=== PATIENT | female | born 1950 | race Caucasian/White ===

== ENCOUNTER 2016-08-15 12:12 | Inpatient (IN) ==
[2016-08-15] MEDS ORDERED: methylPREDNISolone SOD SUCC 125 MG/2 ML VIAL ONE (12:22)
[2016-08-15] MEDS ORDERED: IPRATROPIUM/ALBUTEROL 3 ML AMPUL.NEB NEB ONE ×2 (12:22→13:38)
[2016-08-15] MEDS ORDERED: methylPREDNISolone SOD SUCC 125 MG/2 ML VIAL IV ONE (12:23)
[2016-08-15 12:54] LABS: Mean Cell Volume 95.7 fL (80.0-100.0); Mean Corpuscular HGB Conc 33.3 g/dL (31.0-36.0); Mean Corpuscular Hemoglobin 31.8 pg (26.0-34.0); Platelet Count 240 K/mcL (140-440); RBC 4.54 M/mcL (4.00-5.20); Red Cell Distribution Width 13.7 % (11.5-14.5)
--- NOTE | 2016-08-15 12:56 | Emergency Department Note ---
SOB HPI - General Chief Complaint: Shortness of Breath/Dyspnea Stated Complaint: short of breath, coughing Time Seen by Provider: 08/15/16 12:21 Source: patient Mode of arrival: ambulatory Limitations: no limitations - History of Present Illness 66-year-old female with a history of COPD who has just seen a assistant fitness manager 2 weeks ago started developing shortness of breath and wheezing over the past 3 days. She has been using her breathing treatments at home as a DuoNeb without any steroids.. History of heavy tobacco usage and half a day for greater than 20 years but did quit 20 years ago. Is afebrile. His complaint is she has been wheezing and coughing over the past 2 days. Is afebrile bilateral wheezing heard is heard in both lung garza denies any chest pain denies upper respiratory type signs or symptoms - Related Data Home Medications Medication Instructions Recorded Confirmed albuterol sulfate HFA 90 2 puff INHALATION Q6H PRN g 07/20/16 07/30/16 mcg/actuation aerosol inhaler furosemide 20 mg tablet 20 mg PO QDAY 07/20/16 07/30/16 guaifenesin ER 600 mg tablet, 600 mg PO Q12H PRN 07/20/16 07/30/16 extended release 12 hr potassium chloride ER 10 mEq 10 meq PO QDAY 07/20/16 07/30/16 tablet,extended release azithromycin 500 mg tablet 500 mg PO QDAY 07/30/16 07/30/16 budesonide 0.5 mg/2 mL suspension 0.5 mg INHALATION BID ml 07/30/16 07/30/16 for nebulization Previous Rx's Medication Instructions Recorded ipratropium-albuterol 0.5 mg-3 3 ml INHALATION QID #3 ml 07/30/16 mg(2.5 mg base)/3 mL nebulization soln Allergies Allergy/AdvReac Type Severity Reaction Status Date / Time No Known Drug Allergies Allergy Verified 07/30/16 08:37 Review of Systems All systems ED: reviewed and negative except as stated. Constitutional: Denies: fever Eyes: Denies: eye pain ENT ED: Denies: ear pain Cardiovascular: Denies: chest pain Respiratory: Reports: cough, wheezes Past Medical History - Past Medical History Medical history: Reports: COPD, other (Migraine systolic heart failure) Family history: Reports: other family history (Alzheimer's mother) - Social History smoking status: Former smoker Alcohol use: Reports: None Drug use: Reports: none Physical Exam - General Limitations: no limitations General appearance: alert - Head Head exam: atraumatic - Eye Eye exam: Present: normal appearance, PERRL - ENT ENT exam: normal exam, normal oropharynx - Neck Neck exam: Present: normal inspection, full ROM. Absent: trachea midline - Chest Chest inspection: Present: normal inspection. Absent: symmetric chest wall rise - Respiratory Respiratory exam: Present: normal lung sounds bilaterally, wheezes - Cardiovascular Cardiovascular exam: Present: regular rate, normal rhythm - Abdominal Exam Abdominal exam: Present: soft, distention. Absent: tenderness, guarding - Extremities Exam Extremities exam: Present: normal inspection, full ROM - Back Exam Back exam: Present: normal inspection, full ROM. Absent: tenderness - Neurological Exam Neurological exam: Present: alert, oriented X3, CN II-XII intact - Psychiatric Psychiatric exam: Present: normal affect, normal mood - Skin Skin exam: Present: warm, dry Course Vital Signs Temperature 98.2 F 08/15/16 12:13 Pulse Rate 92 H 08/15/16 12:13 Respiratory Rate 20 08/15/16 12:13 Blood Pressure 143/120 08/15/16 12:13 Pulse Oximetry (%) 80 L 08/15/16 12:13 Temperature 98.2 F 08/15/16 12:13 Pulse Rate 76 08/15/16 12:40 Respiratory Rate 20 08/15/16 12:40 Blood Pressure 171/107 08/15/16 12:40 Pulse Oximetry (%) 95 08/15/16 12:40 Shortness of Breath/Dyspnea - Lab Data Result diagrams: 08/15/16 12:23 Lab Results 08/15/16 08/15/16 Range/Units 12:23 12:23 POC Hct 44.0 (36.0-48.0) % Band Neutrophils % Not Reportable POC Sodium 139 (133-145) mmol/L POC Potassium 4.3 (3.3-5.1) mmol/L POC Chloride 103 (96-108) mmol/L POC Total CO2 23 (22-30) mmol/L POC BUN 6 L (8-23) mg/dl POC Creatinine 0.5 L (0.6-1.1) mg/dl POC Glucose 111 H (70-105) mg/dL POC WB Ioniz Calcium 1.21 (1.16-1.32) mmol/L Disposition Condition: Good Referrals: Juni Avitia MD [Primary Care Provider] -
[2016-08-15] MEDS ORDERED: guaiFENesin/CODEINE 10 ML UDC PO ONE (12:58)
[2016-08-15 13:33] LABS: Band Neutrophils % 3 % (0-10); Eosinophils % (Manual) 2 % (0-7); Lymphocytes % 15 % (15-49); Monocytes % (Manual) 4 % (1-12); Platelet Estimate NORMAL (NORMAL); RBC Morphology NORMAL (NORMAL); Segmented Neutrophils % 74 % (38-78)
--- NOTE | 2016-08-15 13:52 | XRay Report ---
CLINICAL INFORMATION: Shortness of breath COMPARISON: 04/24/2016 FINDINGS: Heart size, mediastinum and pulmonary vessels are normal. The lung volumes are mildly elevated suggesting chronic bronchitis which is unchanged. Small vague infiltrate or atelectasis developing in the right medial base. Bilateral breast implants resulting in increased density over the mid lungs IMPRESSION: Mild chronic bronchitis or asthma Mild airspace disease right base atelectasis versus developing infiltrate Interpreted and Authenticated by: Bruno Uriostegui 08/15/16
[2016-08-15] MEDS ORDERED: cefTRIAXone 1 GM in DEXTROSE 5% IN WATER 50 ML IV ONE (14:29)
[2016-08-15] MEDS ORDERED: AZITHROMYCIN 500 MG in DEXTROSE 5% IN WATER 250 ML IV ONE (14:30)
[2016-08-15 15:59] LABS: ALT/SGPT 19 U/l (0-40); Albumin 4.1 gm/dL (3.2-5.2); Albumin/Globulin Ratio 1.2 (1.0-2.3); Alkaline Phosphatase 87 U/L (39-117); Blood Urea Nitrogen 7 mg/dl (8-23)
[2016-08-15] MEDS ORDERED: ONDANSETRON 4 MG/2 ML VIAL IV PRN (17:13)
[2016-08-15] MEDS ORDERED: DOCUSATE SODIUM 100 MG CAPSULE PO PRN (17:13)
[2016-08-15] MEDS ORDERED: MAGNESIUM HYDROXIDE 30 ML ORAL.SUSP PO PRN (17:13)
[2016-08-15] MEDS ORDERED: ACETAMINOPHEN 325 MG TABLET PO PRN (17:13)
[2016-08-15] MEDS ORDERED: PNEUMOCOCCAL 23-VAL P-SAC VAC 0.5 ML VIAL IM ONE (17:13)
[2016-08-15] MEDS ORDERED: ALBUTEROL SULFATE 2.5 MG/3 ML NEBULIZER NEB PRN (17:13)
[2016-08-15 17:50] LABS: proBNP 79.7 pg/ml (0-125)
[2016-08-15] MEDS: POTASSIUM CHLORIDE 20 MEQ in 0.45 % SODIUM CHLORIDE 1,000 ML IV SCH (18:12)
--- NOTE | 2016-08-15 18:52 | Internal Med History&Physical ---
Medical - H&P: HPI Patient information: Note initiated : 08/15/16 at 6:46 pm Service Date, if different from initiated Date: [] Patient: Keeley Brandt 66 y/o F admitted on 08/15/16 for short of breath, coughing. Chief Complaint: [] History of present illness: Ms. Brandt is a 66 year old female with a history of COPD. She and her report that she became ill with pneumonia 6 weeks or so ago. Her feels like she never really got back to normal after that. She apparently was feeling a little bit better, but then about 4 days ago started having increasing coughing spells and spasms, which would then trigger increased shortness of breath. She was using duo nebs at home, which helped for a short time, but then the cough would return. She did notice some chills yesterday, but did not notice a fever. She has a mild headache, and says her vision seems a little off the last couple of days. Her throat is been a bit sore, and she has had a runny nose, but she thought these were just allergy symptoms. She is having some chest soreness related to the coughing. She is noting fairly significant dyspnea with exertion and also some dyspnea with trying to lie down. She is most comfortable sitting straight up. Otherwise, she denies dizziness, ear pain or discharge, significant sinus tenderness, swollen glands, palpitations, abdominal pain, nausea or vomiting, diarrhea or constipation, dysuria. ER evaluation showed significant hypoxemia, particularly on room air. She did not improve enough with treatments in the ER to go home, so is now admitted for more intensive management. Medical History Body mass index (BMI) of 37.0 to 37.9 in adult (Chronic) Bronchitis (Chronic) Chronic diastolic (congestive) heart failure (Chronic) Chronic obstructive pulmonary disease, unspecified (Chronic) Migraine headache (Chronic) Personal history of nicotine dependence --resolved. Pneumonia Tuberculosis -treated in the 1960s, resolved. Surgical History History of appendectomy Medication List albuterol sulfate HFA 90 mcg/actuation (Ventolin HFA) 2 puffs Inhalation Q6H PRN budesonide 0.5 mg Inhalation BID furosemide (Lasix) 20 mg PO QDAY needed guaifenesin ER (Mucinex) 600 mg PO Q12H PRN potassium chloride ER 10 mEq PO QDAY on day she takes Lasix. Duo nebs 4 times daily Allergies/Adverse Reactions No Known Drug Allergies Allergy Family History Her father's health was unknown. Her mother with Alzheimer's in her 60s. Her brother of a massive heart attack in his early 60s. She is not aware of family history of lung disease, cancers, stroke. Social History She is to her second . She does live with her and her cat. She refuses to get rid of her cat, even though her doctor has recommended it. She smoked for many years, starting at the age of 14, 1-1-1/2 packs per day, but quit in 1995. She drinks 1-2 glasses of wine most evenings. She does not use drugs. Medical - H&P: Meds Home Medications Medication Instructions Recorded Confirmed Type albuterol sulfate HFA 90 2 puff INHALATION Q6H PRN g 07/20/16 07/30/16 History mcg/actuation aerosol inhaler furosemide 20 mg tablet 20 mg PO QDAY 07/20/16 07/30/16 History guaifenesin ER 600 mg tablet, 600 mg PO Q12H PRN 07/20/16 07/30/16 History extended release 12 hr potassium chloride ER 10 mEq 10 meq PO QDAY 07/20/16 07/30/16 History tablet,extended release azithromycin 500 mg tablet 500 mg PO QDAY 07/30/16 07/30/16 History budesonide 0.5 mg/2 mL suspension 0.5 mg INHALATION BID ml 07/30/16 07/30/16 History for nebulization ipratropium-albuterol 0.5 mg-3 3 ml INHALATION QID #3 ml 07/30/16 07/30/16 Rx mg(2.5 mg base)/3 mL nebulization soln Allergies Allergy/AdvReac Type Severity Reaction Status Date / Time No Known Drug Allergies Allergy Verified 07/30/16 08:37 Medical - H&P: Exam - Constitutional Vitals: Temp Pulse Resp BP Pulse Ox 98.1 F 95 H 24 H 118/78 93 08/15/16 17:40 08/15/16 17:40 08/15/16 17:40 08/15/16 17:40 08/15/16 17:40 On exam, she is a well-developed, overweight, white female, who tends to cough and wheeze whenever she tries to talk. She is not otherwise in acute distress at this time. Head: Normocephalic, atraumatic. Ears: TMs and canals are clear. Eyes: PERRLA, EOMI, anicteric. Pharynx: Is clear. She has full upper and lower plates. Mucosa is normal. Neck: Is supple, without obvious JVD, lymphadenopathy, thyromegaly, bruits. Cardiac exam: Shows regular rate and rhythm, with normal S1 and S2, without obvious murmurs, rubs, gallops. Lungs: She has diffuse inspiratory and expiratory wheezing, throughout all lung garza. Scattered rhonchi are noted. Crackles are not appreciated. She does not appear to have accessory muscle use. Abdomen: Is obese, but soft and nontender. Extremities: Show no significant edema, cyanosis or clubbing. Neurologic exam: Is grossly nonfocal. Mood and affect appear normal. Medical - H&P: Reslt - Labs CBC & Chem 7: 08/15/16 12:23 08/15/16 14:54 Labs: August 15: Liver function tests within normal limits. Troponin is normal at less than 0.01. BNP is normal at 79 D-dimer is normal at 0.31 Lactic acid is normal at 2.0 ABG on room air: PH 7.42, PCO2 37, PO2 56, bicarb 24, O2 saturation 89% Chest x-ray: Shows mildly elevated lung volumes suggesting chronic bronchitis. Small vague infiltrate versus atelectasis at the right base. Bilateral breast implants. EKG: Shows normal sinus rhythm at a rate of about 95. Normal axis. Low voltage. No obvious acute ischemic changes. August 14, 2016: Sputum Gram stain: Few polys. Few gram-positive cocci and gram- positive bacilli. Preliminary culture shows no pathogens. Medical - H&P: A/P (1) Acute and chronic respiratory failure ([id number]) Current visit: Yes Status: Acute (2) History of tobacco abuse Current visit: No Status: Acute (3) Hypoxia Current visit: Yes Status: Acute (4) Pneumonia Current visit: Yes Status: Chronic (5) Chronic diastolic (congestive) heart failure Current visit: No Status: Chronic - Narrative A/P Narrative: #1. Pulmonary. This patient presents with acute on chronic respiratory failure, with hypoxia. She appears to be having a COPD/emphysema exacerbation, complicated by pneumonia. Screens for cardiac ischemia, CHF, PE, are all negative. Admit for workup and treatment. Oxygen to maintain O2 saturations. Bronchodilators and IV fluids as needed, and inhaled budesonide. Cover for community-acquired pneumonia with Rocephin and Zithromax. Blood and sputum cultures are pending. 2. Obesity. 3. Cardiac. - Reported history of diastolic heart failure. The patient seems unaware of this diagnosis. The patient seems unaware of this diagnosis. Continue Lasix 20 mg daily, as needed. -Patient reports she had a fairly recent cardiac workup at [facility] , including stress test and echocardiogram. 4. History of migraines. 5. History of tobacco abuse. Abstinent 20 years. 6. 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 7. CODE STATUS: Patient requests DNR 8. DVT prophylaxis: Subcu Lovenox. This visit took approximately 50 minutes, to review the patient's records and test results, review her case with the ER MD, interview and examine her, and write orders. Medical - H&P: Qual - VTE Deep Vein Thrombosis/Pulmonary Embolism Present on Admission: No
[2016-08-15] MEDS: IPRATROPIUM/ALBUTEROL 3 ML AMPUL.NEB NEB SCH (19:42)
[2016-08-15] MEDS: BUDESONIDE 0.5 MG/2 ML AMPUL.NEB NEB SCH (20:59)
[2016-08-15] MEDS: 0.9 % SODIUM CHLORIDE 10 ML SYRINGE IV SCH (21:42)
[2016-08-16] MEDS: IPRATROPIUM/ALBUTEROL 3 ML AMPUL.NEB NEB SCH ×4 (00:52→20:20)
[2016-08-16] MEDS: 0.9 % SODIUM CHLORIDE 10 ML SYRINGE IV SCH ×3 (04:26→22:06)
[2016-08-16 06:21] LABS: Basophils # (Auto) 0 K/mcL (0.0-0.3); Basophils % (Auto) 0.1 % (0.0-2.0); Eosinophils # (Auto) 0 K/mcL (0.0-0.7); Eosinophils % (Auto) 0.2 % (0.0-7.0); Granulocytes % (Auto) 87.3 % (38.0-78.0); Lymphocytes # (Auto) 0.8 K/mcL (1.5-4.8); Lymphocytes % (Auto) 9.7 % (15.5-49.0); Mean Cell Volume 96.7 fL (80.0-100.0); Mean Corpuscular HGB Conc 33.1 g/dL (31.0-36.0); Monocytes # (Auto) 0.2 K/mcL (0.1-0.9); Monocytes % (Auto) 2.7 % (1.0-12.0); Platelet Count 245 K/mcL (140-440); Red Cell Distribution Width 13.4 % (11.5-14.5)
[2016-08-16 06:52] LABS: ALT/SGPT 18 U/l (0-40); Albumin/Globulin Ratio 1.4 (1.0-2.3); Alkaline Phosphatase 77 U/L (39-117); Bilirubin,Direct < 0.2 mg/dL (0.0-0.3); Blood Urea Nitrogen 10 mg/dl (8-23); Gamma Glutamyl Transpeptidase 29 U/L (5-36); Magnesium 2.1 mg/dL (1.6-2.5); Uric Acid 4.9 mg/dL (2.5-8.0)
[2016-08-16] MEDS: BUDESONIDE 0.5 MG/2 ML AMPUL.NEB NEB SCH ×2 (07:09→20:19)
[2016-08-16] MEDS ORDERED: PNEUMOCOCCAL 23-VAL P-SAC VAC 0.5 ML VIAL IM ONE (09:00)
[2016-08-16] MEDS: ENOXAPARIN 40 MG/0.4 ML SYRINGE SQ SCH (10:06)
[2016-08-16] MEDS: AZITHROMYCIN 500 MG in DEXTROSE 5% IN WATER 250 ML IV SCH (10:06)
--- NOTE | 2016-08-16 10:25 | Internal Med Progress Note ---
Medical - PN: Subj Patient information: Note initiated : 08/16/16 at 10:25 am Service Date, if different from initiated Date: [] Patient: Keeley Brantd 66 y/o F admitted on 08/15/16 for short of breath, coughing. Chief Complaint: [] Interval history: August 15, 2016: History of present illness: Ms. Brandt is a 66 year old female with a history of COPD. She and her report that she became ill with pneumonia 6 weeks or so ago. Her feels like she never really got back to normal after that. She apparently was feeling a little bit better, but then about 4 days ago started having increasing coughing spells and spasms, which would then trigger increased shortness of breath. She was using duo nebs at home, which helped for a short time, but then the cough would return. She did notice some chills yesterday, but did not notice a fever. She has a mild headache, and says her vision seems a little off the last couple of days. Her throat is been a bit sore, and she has had a runny nose, but she thought these were just allergy symptoms. She is having some chest soreness related to the coughing. She is noting fairly significant dyspnea with exertion and also some dyspnea with trying to lie down. She is most comfortable sitting straight up. Otherwise, she denies dizziness, ear pain or discharge, significant sinus tenderness, swollen glands, palpitations, abdominal pain, nausea or vomiting, diarrhea or constipation, dysuria. ER evaluation showed significant hypoxemia, particularly on room air. She did not improve enough with treatments in the ER to go home, so is now admitted for more intensive management. August 16: Today, the patient says she is feeling quite a bit better. However she has a headache kind of that she describes as around her sinuses and temporal areas. She has no shortness of breath at rest, and fairly minimal shortness of breath with exertion. However, PT did walk her and noted that her sats dropped down into the mid 80s after activity on room air. Otherwise, she denies fever or chills, sore throat. She does have a bit of a cough still. She denies chest pain or palpitations. She continues to have some wheezing, that is improved. She denies abdominal pain nausea or vomiting diarrhea or constipation, or dysuria. - Constitutional Vitals: Vital Signs Temp Pulse Resp BP Pulse Ox 97.9 F 70 16 145/86 96 08/16/16 07:27 08/16/16 07:36 08/16/16 07:34 08/16/16 07:27 08/16/16 07:36 Period Temp Pulse Resp BP Sys/Barber Pulse Ox Last 24 Hr 97.6 F-98.2 F 67-95 16-24 118-171/72-93 90-96 Intake and Output 08/15/16 08/16/16 08/16/16 21:59 05:59 13:59 Intake Total 1160 / 1460 300 / 300 1200 / 1200 Output Total 1100 / 1100 1550 / 1550 1300 / 1300 Balance 60 / 360 -1250 / -1250 -100 / -100 Weight 227 lb 8 oz Intake & Output: Intake & Output 08/15/16 08/16/16 08/16/16 21:59 05:59 13:59 Intake Total 1160 / 1460 300 / 300 1200 / 1200 Output Total 1100 / 1100 1550 / 1550 1300 / 1300 Balance 60 / 360 -1250 / -1250 -100 / -100 Weight 227 lb 8 oz Intake: Oral 1160 / 1160 300 / 300 1200 / 1200 Output: Void Amount 1100 / 1100 1550 / 1550 1300 / 1300 Other: Meal Dinner Breakfast Percent of Meal Consumed 100% 100% Feeding Ability Independent # Voids 1 On exam, she is sitting up in a chair and smiling. Neck shows no obvious lymphadenopathy or JVD. Cardiac exam shows regular rate and rhythm. Lungs: Soft wheezes heard throughout all lung garza, but much improved over yesterday. There is no accessory muscle use. Abdomen: Is soft and nontender. Extremities: Show no edema. Medical - PN: Obj Da - Labs CBC & Chem 7: 08/16/16 04:10 08/16/16 04:10 Labs: Abnormal Lab Results 08/16/16 08/16/16 04:10 04:10 Gran % 87.3 H Lymph % (Auto) 9.7 L Lymph # (Auto) 0.8 L Glucose 126 H August 16: Liver function tests are within normal limits. Blood cultures are negative so far. Follow-up chest x-ray shows minor atelectasis at the right base, without abdias infiltrate. Chronic bronchitis changes are noted. August 15: Liver function tests within normal limits. Troponin is normal at less than 0.01. BNP is normal at 79 D-dimer is normal at 0.31 Lactic acid is normal at 2.0 ABG on room air: PH 7.42, PCO2 37, PO2 56, bicarb 24, O2 saturation 89% Chest x-ray: Shows mildly elevated lung volumes suggesting chronic bronchitis. Small vague infiltrate versus atelectasis at the right base. Bilateral breast implants. EKG: Shows normal sinus rhythm at a rate of about 95. Normal axis. Low voltage. No obvious acute ischemic changes. August 14, 2016: Sputum Gram stain: Few polys. Few gram-positive cocci and gram- positive bacilli. Preliminary culture shows no pathogens. Meds: Medications Acetaminophen (Tylenol) 650 mg PO Q6HP PRN PRN Reason: PAIN/FEVER > 101 Last Admin: 08/15/16 21:02 Dose: 650 mg Albuterol Sulfate (Ventolin) 2.5 mg NEB Q2HP PRN PRN Reason: Shortness Of Breath Albuterol/Ipratropium (Duoneb) 3 ml NEB Q6HRT [facility] Last Admin: 08/16/16 07:09 Dose: 3 ml Budesonide (Pulmicort) 0.5 mg NEB Q12 [facility] Last Admin: 08/16/16 07:09 Dose: 0.5 mg Docusate Sodium (Colace) 100 mg PO BID PRN PRN Reason: Constipation Enoxaparin Sodium (Lovenox) 40 mg SQ DAILY [facility] Last Admin: 08/16/16 10:06 Dose: 40 mg Azithromycin 500 mg/ Dextrose 250 mls @ 250 mls/hr IV Q24H [facility] Stop: 08/17/16 09:59 Last Admin: 08/16/16 10:06 Dose: 250 mls/hr Ceftriaxone Sodium 1 gm/ (Dextrose) 50 mls @ 100 mls/hr IV DAILY [facility] Potassium Chloride 20 meq/ (Sodium Chloride) 1,010 mls @ 75 mls/hr IV .[id number] [facility] Last Admin: 08/15/16 18:12 Dose: 75 mls/hr Magnesium Hydroxide (Milk Of Magnesia) 30 ml PO DAILYP PRN PRN Reason: Constipation Ondansetron HCl (Zofran) 4 mg IV Q6HP PRN PRN Reason: Nausea And Vomiting Sodium Chloride (Saline Flush) 10 ml IV Q8 [facility] Last Admin: 08/16/16 04:26 Dose: Not Given Medical - PN: A/P - Time Spent With Patient Total time spent is greater than 50% in coordination of care (as documented) at patient's floor/unit and/or counseling patient: 25 - 35 minutes (1) Acute and chronic respiratory failure ([id number]) Status: Acute Current Visit: Yes (2) History of tobacco abuse Status: Acute Current Visit: No (3) Hypoxia Status: Acute Current Visit: Yes (4) Pneumonia Status: Chronic Current Visit: Yes (5) Chronic diastolic (congestive) heart failure Status: Chronic Current Visit: No - Narrative A/P Narrative: #1. Pulmonary. This patient presents with acute on chronic respiratory failure, with hypoxia. She appears to be having a COPD/emphysema exacerbation, complicated by pneumonia. Screens for cardiac ischemia, CHF, PE, are all negative. The patient continues to have hypoxia with exertion. Continue oxygen to maintain O2 saturations. Bronchodilators and IV fluids as needed, and inhaled budesonide. -IV steroids were added today. Cover for community-acquired pneumonia with Rocephin and Zithromax. Blood and sputum cultures are pending. 2. Obesity. 3. Cardiac. - Reported history of diastolic heart failure. The patient seems unaware of this diagnosis. The patient seems unaware of this diagnosis. Continue Lasix 20 mg daily, as needed. -Patient reports she had a fairly recent cardiac workup at [facility] , including stress test and echocardiogram. 4. History of migraines. 5. History of tobacco abuse. Abstinent 20 years. 6. 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 7. CODE STATUS: Patient requests DNR 8. DVT prophylaxis: Subcu Lovenox. #9. Headache today. She may well have sinusitis. - IV steroids were added today, to cover a possible sinus infection, in addition to her COPD exacerbation. -Schneider was also added to help control headache. Medical - PN: Qual - VTE Deep Vein Thrombosis/Pulmonary Embolism Present on Admission: No
[2016-08-16] MEDS ORDERED: HYDROcodone/APAP 5/325MG TABLET PO PRN (11:39)
[2016-08-16] MEDS: methylPREDNISolone SOD SUCC 125 MG/2 ML VIAL IV SCH ×2 (11:50→22:06)
--- NOTE | 2016-08-16 12:03 | XRay Report ---
CLINICAL INFORMATION: Follow up pneumonia COMPARISON: 08/07/2016 FINDINGS: There is minor atelectasis in the right base which is unchanged - no abdias infiltrate. Heart size, mediastinum and pulmonary vessels are normal. Chronic bronchitis noted. IMPRESSION: No infiltrate - minor right basilar atelectasis Interpreted and Authenticated by: Bruno Uriostegui 08/16/16
[2016-08-16] MEDS: cefTRIAXone 1 GM in DEXTROSE 5% IN WATER 50 ML IV SCH (12:27)
[2016-08-16] MEDS: POTASSIUM CHLORIDE 20 MEQ in 0.45 % SODIUM CHLORIDE 1,000 ML IV SCH (13:35)
[2016-08-16] MEDS ORDERED: FUROSEMIDE 20 MG TABLET PO PRN (21:07)
[2016-08-16] MEDS ORDERED: guaiFENesin 600 MG TAB.SR.12H PO PRN (21:07)
[2016-08-17] MEDS: POTASSIUM CHLORIDE 20 MEQ in 0.45 % SODIUM CHLORIDE 1,000 ML IV SCH ×2 (02:50→10:18)
[2016-08-17] MEDS: IPRATROPIUM/ALBUTEROL 3 ML AMPUL.NEB NEB SCH ×3 (03:25→13:13)
[2016-08-17] MEDS: 0.9 % SODIUM CHLORIDE 10 ML SYRINGE IV SCH (05:20)
[2016-08-17] MEDS: BUDESONIDE 0.5 MG/2 ML AMPUL.NEB NEB SCH (07:21)
[2016-08-17 07:55] LABS: Basophils # (Auto) 0 K/mcL (0.0-0.3); Basophils % (Auto) 0 % (0.0-2.0); Eosinophils # (Auto) 0 K/mcL (0.0-0.7); Eosinophils % (Auto) 0 % (0.0-7.0); Granulocytes % (Auto) 92.4 % (38.0-78.0); Lymphocytes # (Auto) 0.8 K/mcL (1.5-4.8); Lymphocytes % (Auto) 7.2 % (15.5-49.0); Mean Cell Volume 96.6 fL (80.0-100.0); Mean Corpuscular HGB Conc 33.4 g/dL (31.0-36.0); Mean Corpuscular Hemoglobin 32.2 pg (26.0-34.0); Monocytes # (Auto) 0 K/mcL (0.1-0.9); Monocytes % (Auto) 0.4 % (1.0-12.0); Platelet Count 241 K/mcL (140-440); RBC 4.23 M/mcL (4.00-5.20); Red Cell Distribution Width 13.5 % (11.5-14.5)
[2016-08-17 08:28] LABS: ALT/SGPT 21 U/l (0-40); Albumin 3.9 gm/dL (3.2-5.2); Albumin/Globulin Ratio 1.4 (1.0-2.3); Alkaline Phosphatase 72 U/L (39-117); Bilirubin,Direct < 0.2 mg/dL (0.0-0.3); Blood Urea Nitrogen 15 mg/dl (8-23); Gamma Glutamyl Transpeptidase 36 U/L (5-36); Magnesium 2.1 mg/dL (1.6-2.5); Uric Acid 4.7 mg/dL (2.5-8.0)
[2016-08-17] MEDS: methylPREDNISolone SOD SUCC 125 MG/2 ML VIAL IV SCH (08:32)
[2016-08-17] MEDS ORDERED: cefTRIAXone 1 GM VIAL ONE (08:36)
[2016-08-17] MEDS: ENOXAPARIN 40 MG/0.4 ML SYRINGE SQ SCH (08:52)
[2016-08-17] MEDS: cefTRIAXone 1 GM in DEXTROSE 5% IN WATER 50 ML IV SCH (08:53)
[2016-08-17] MEDS: AZITHROMYCIN 500 MG in DEXTROSE 5% IN WATER 250 ML IV SCH (09:47)
--- NOTE | 2016-08-17 11:21 | Discharge Summary ---
Medical - DS: Prov Patient information: Note initiated : 08/17/16 at 11:21 am Service Date, if different from initiated Date: [] Patient: Keeley Brandt 66 y/o F admitted on 08/15/16 for SOB, Coughing/Resp Failure w/ Hypoxia, Pneumonia. Chief Complaint: [] Date of admission: 08/15/16 17:00 Discharge date: 08/17/16 Primary care physician: Juni Avitia Admitting clinician: Cheryl Mir Attending physician on discharge: Cheryl Mir Medical - DS: Meds - Discharge Medications Prescriptions: Amoxicillin/Potassium Clav [Augmentin] 875 mg PO Q12H #10 tablet Budesonide [Pulmicort] 0.5 mg NEB Q12 #60 ampul.neb predniSONE [Prednisone] 10 mg PO UD #40 tablet Active and Home Medications: Discharge medications: Augmentin 875 mg p.o. twice daily for 5 more days. Prednisone taper, start with 80 mg daily, taper by 10 mg per day. Tylenol as needed Duo nebs per nebulizer 4 times daily Albuterol inhaler as needed Budesonide nebulizers 0.5 mg twice daily Guaifenesin 600 mg p.o. every 12 hours as needed sinus congestion Potassium 10 mEq once a day, when you take Lasix Lasix 20 mg daily as needed excess edema Previous home Medications albuterol sulfate HFA 90 mcg/actuation aerosol inhaler 2 puff INHALATION Q6H PRN g 07/20/16 [History Confirmed 08/15/16 Last Taken 08/15/16 08:00] furosemide 20 mg tablet 20 mg PO QDAY 07/20/16 [History Confirmed 08/15/16 Last Taken 08/13/16 08:00] guaifenesin ER 600 mg tablet, extended release 12 hr 600 mg PO Q12H PRN [History Confirmed 08/15/16 Last Taken 08/15/16 05:00] potassium chloride ER 10 mEq tablet,extended release 10 meq PO QDAY 07/20/16 [ History Confirmed 08/16/16 Last Taken 08/13/16 08:00] budesonide 0.5 mg/2 mL suspension for nebulization 0.5 mg INHALATION BID ml 02/03 [History Confirmed 08/15/16 Last Taken 08/15/16] ipratropium-albuterol 0.5 mg-3 mg(2.5 mg base)/3 mL nebulization soln 3 ml INHALATION QID #3 ml 07/30/16 [Rx Confirmed 08/15/16 Last Taken 08/15/16] Medical - DS: [facility] Hospital course: Mr. Brandt is a 66 year old F August 15, 2016: History of present illness: Ms. Brantd is a 66 year old female with a history of COPD. She and her report that she became ill with pneumonia 6 weeks or so ago. Her feels like she never really got back to normal after that. She apparently was feeling a little bit better, but then about 4 days ago started having increasing coughing spells and spasms, which would then trigger increased shortness of breath. She was using duo nebs at home, which helped for a short time, but then the cough would return. She did notice some chills yesterday, but did not notice a fever. She has a mild headache, and says her vision seems a little off the last couple of days. Her throat is been a bit sore, and she has had a runny nose, but she thought these were just allergy symptoms. She is having some chest soreness related to the coughing. She is noting fairly significant dyspnea with exertion and also some dyspnea with trying to lie down. She is most comfortable sitting straight up. Otherwise, she denies dizziness, ear pain or discharge, significant sinus tenderness, swollen glands, palpitations, abdominal pain, nausea or vomiting, diarrhea or constipation, dysuria. ER evaluation showed significant hypoxemia, particularly on room air. She did not improve enough with treatments in the ER to go home, so is now admitted for more intensive management. August 16: Today, the patient says she is feeling quite a bit better. However she has a headache kind of that she describes as around her sinuses and temporal areas. She has no shortness of breath at rest, and fairly minimal shortness of breath with exertion. However, PT did walk her and noted that her sats dropped down into the mid 80s after activity on room air. Otherwise, she denies fever or chills, sore throat. She does have a bit of a cough still. She denies chest pain or palpitations. She continues to have some wheezing, that is improved. She denies abdominal pain nausea or vomiting diarrhea or constipation, or dysuria. August 17: Hospital course: The patient has done well overnight. She was weaned off her oxygen this morning. She only drops her O2 saturation down to about 90% today, with ambulation. She is coughing less, and feels that her breathing is easier. She is quite anxious to return home. She otherwise denies fever or chills. She continues to have a fairly flushed face. She says today that she thinks her headache was not her sinuses, but was caffeine withdrawal, as we had her on a cardiac diet, and she is used to caffeine every day. She denies chest pain or palpitations or significant shortness of breath, GI or symptoms. Physical exam, she is a well-developed well-nourished female in no acute distress. Neck is supple without lymphadenopathy or JVD. Cardiac exam shows regular rate and rhythm. Lungs show somewhat decreased breath sounds, with minimal scattered wheezes. There is no accessory muscle use. Abdomen: Soft. Extremities show no edema. Neurologic exam is grossly nonfocal . Assessment and plan: #1. Pulmonary. This patient presents with acute on chronic respiratory failure, with hypoxia. She appears to be having a COPD/emphysema exacerbation, complicated by pneumonia. Screens for cardiac ischemia, CHF, PE, are all negative. -Hypoxemia did improve today. She is feeling much better. She will be discharged home on oral prednisone, duo nebs, budesonide nebs twice daily, Augmentin to cover both her lungs and her sinuses, guaifenesin. Blood and sputum cultures are pending. 2. Obesity. 3. Cardiac. - Reported history of diastolic heart failure. The patient seems unaware of this diagnosis. Continue Lasix 20 mg daily, as needed. -Patient reports she had a fairly recent cardiac workup at [facility] , including stress test and echocardiogram. 4. History of migraines. 5. History of tobacco abuse. Abstinent 20 years. 6. 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 7. CODE STATUS: Patient requests DNR 8. DVT prophylaxis: Subcu Lovenox. #9. Headache yesterday. We thought perhaps she had sinusitis, but today we are wondering if she was just having a caffeine withdrawal headache. -Covered with oral Augmentin, prednisone. Add Flonase if needed. This visit today took approximately 35 minutes, to interview and examine the patient, review her test results, check follow-up O2 sats, reviewed plan of care with staff, and write orders and prescriptions.. Discharge diagnosis: COPD exacerbation with hypoxia. Possible acute sinusitis, pneumonia - Time Spent with Patient Total time spent providing and/or coordinating discharge services: Greater than 30 minutes Medical - DS: Exam - Constitutional Vitals: Vital Signs Temp Pulse Pulse Resp BP Pulse Ox 08/17/16 10:44 91 08/17/16 07:45 96.5 F L 98 H 16 115/78 96 08/17/16 07:40 16 96 08/17/16 07:23 62 18 94 08/17/16 03:37 98.7 F 62 18 117/80 93 08/16/16 20:24 70 22 95 08/16/16 20:23 96 08/16/16 20:21 70 22 08/16/16 20:00 96.6 F L 70 18 105/71 95 08/16/16 16:16 97.3 F 22 101/60 08/16/16 13:19 70 16 08/16/16 11:41 97.6 F 20 113/75 96 Intake and Output 08/16/16 08/17/16 08/17/16 21:59 05:59 13:59 Intake Total 1600 / 1600 300 / 300 1620 / 1620 Output Total 1225 / 1225 1400 / 1400 1400 / 1400 Balance 375 / 375 -1100 / -1100 220 / 220 Intake: Oral 1600 / 1600 300 / 300 1620 / 1620 Output: Urine Catheter Amount 1000 / 1000 Void Amount 1225 / 1225 1400 / 1400 400 / 400 Other: Meal Breakfast Percent of Meal Consumed 75% # Voids 250 # Bowel Movements 1 Weight 226 lb Medical - DS: Data Labs on day of discharge: Labs from last 24 hours 08/17/16 08/17/16 05:45 05:45 WBC 10.9 RBC 4.23 Hgb 13.6 Hct 40.8 MCV 96.6 MCH 32.2 MCHC 33.4 RDW 13.5 Plt Count 241 MPV 9.0 Gran % 92.4 H Lymph % (Auto) 7.2 L [place] % (Auto) 0.4 L Eos % (Auto) 0 Baso % (Auto) 0 Gran # 10.0 H Lymph # (Auto) 0.8 L [place] # (Auto) 0 L Eos # (Auto) 0 Baso # (Auto) 0 Sodium 140 Potassium 4.7 Chloride 103 Carbon Dioxide 21 L Anion Gap 16.0 BUN 15 Creatinine 0.6 GFR Calculation 94 Glucose 132 H Uric Acid 4.7 Calcium 9.5 Phosphorus 3.2 Magnesium 2.1 Total Bilirubin 0.2 Direct Bilirubin < 0.2 GGT 36 AST 18 ALT 21 Alkaline Phosphatase 72 Lactate Dehydrogenase 202 Total Protein 6.7 Albumin 3.9 Globulin 2.8 Albumin/Globulin Ratio 1.4 Triglycerides 74 August 16: Liver function tests are within normal limits. Blood cultures are negative so far. Follow-up chest x-ray shows minor atelectasis at the right base, without abdias infiltrate. Chronic bronchitis changes are noted. August 15: Liver function tests within normal limits. Troponin is normal at less than 0.01. BNP is normal at 79 D-dimer is normal at 0.31 Lactic acid is normal at 2.0 ABG on room air: PH 7.42, PCO2 37, PO2 56, bicarb 24, O2 saturation 89% Chest x-ray: Shows mildly elevated lung volumes suggesting chronic bronchitis. Small vague infiltrate versus atelectasis at the right base. Bilateral breast implants. EKG: Shows normal sinus rhythm at a rate of about 95. Normal axis. Low voltage. No obvious acute ischemic changes. August 14, 2016: Sputum Gram stain: Few polys. Few gram-positive cocci and gram- positive bacilli. Preliminary culture shows no pathogens. Medical - DS: A/P - Patient/Caregiver Discharge Instructions Activity: increase activity as tolerated Diet: Low Sodium (2gm) Additional Instructions: 1. You presented with worsening lung function, and significantly low oxygen levels. She retreated with IV steroids, IV antibiotics, inhaled lung medications, as well as oxygen. You have improved to the point where she thinks she will do okay at home. Your oxygen levels are still a bit on the low side with exercise, so please do not push herself too hard for the next few days. Please take the antibiotic prescription until completed Please take prednisone, as directed. She will be given 10 mg tablets. Start out with 8 per day, and then decrease by one per day until you are down to 1 a day, then stop. Please continue to use your ipratropium/albuterol nebulizer treatments 4 times a day at home. Please also continue your budesonide inhaler treatments twice a day at home. If you develop worsening symptoms, fever or chills, increased shortness of breath, please call your doctor right away, or return to the emergency room. Please also continue with the guaifenesin, to help with any sinus symptoms. Your prescriptions have been called to [facility] pharmacy. Prescriptions: Amoxicillin/Potassium Clav [Augmentin] 875 mg PO Q12H #10 tablet Budesonide [Pulmicort] 0.5 mg NEB Q12 #60 ampul.neb predniSONE [Prednisone] 10 mg PO UD #40 tablet - Problem Maintenance (1) Acute and chronic respiratory failure ([id number]) Status: Acute Qualifiers: Respiratory failure complication: hypoxia Qualified Code(s): J96.21 - Acute and chronic respiratory failure with hypoxia (2) History of tobacco abuse Status: Resolved (3) Hypoxia Status: Acute (4) Pneumonia Status: Acute Qualifiers: Pneumonia type: due to unspecified organism (5) Chronic diastolic (congestive) heart failure Status: Chronic - Follow up Plan Follow up with: Juni Avitia MD [Primary Care Provider] - (Please call and schedule a follow up appointment to be seen in 7-10 days.) Disposition: Home, Self-Care Prognosis: Good Rehab Potential: Good I certify that the patient requires SNF services: No Overall status at discharge: patient is progressing back to baseline Medical - DS: Qual - VTE Deep Vein Thrombosis/Pulmonary Embolism Present on Admission: No
== END 2016-08-17 14:25 | disposition home or self-care (01) | DRG 190 ==
LOC: ED 12:12 → MEDSUR 16:40
PROVIDERS: ADMIT Internal Medicine; ATTEND Internal Medicine

== ENCOUNTER 2016-08-19 10:36 | Observation (INO) ==
[~2016-08-19 10:36] MED LIST: IPRATROPIUM/ALBUTEROL 3 ML AMPUL.NEB NEB ONE
[2016-08-19] MEDS ORDERED: AZITHROMYCIN 250 MG TABLET PO ONE (10:43)
[2016-08-19] MEDS ORDERED: predniSONE 20 MG TABLET PO ONE (10:43)
--- NOTE | 2016-08-19 10:43 | Emergency Department Note ---
SOB HPI - General Chief Complaint: Shortness of Breath/Dyspnea Stated Complaint: SOB Source: patient Mode of arrival: ambulatory - History of Present Illness This patient has had shortness of breath wheezing on a dry cough for the last several days. She does have COPD and does not seem to be responding to her inhalers and medication. Complaint: shortness of breath, cough Onset (ago): day(s) - Related Data Home Medications Medication Instructions Recorded Confirmed albuterol sulfate HFA 90 2 puff INHALATION Q6H PRN g 07/20/16 08/19/16 mcg/actuation aerosol inhaler potassium chloride ER 10 mEq 10 meq PO QDAY 07/20/16 08/19/16 tablet,extended release budesonide 0.5 mg/2 mL suspension 0.5 mg INHALATION BID ml 07/30/16 08/19/16 for nebulization guaiFENesin [Mucus Relief] 400 mg PO TIDP PRN 08/19/16 08/19/16 predniSONE [Prednisone] 70 mg PO DAILY 08/19/16 08/19/16 Previous Rx's Medication Instructions Recorded ipratropium-albuterol 0.5 mg-3 3 ml INHALATION QID #3 ml 07/30/16 mg(2.5 mg base)/3 mL nebulization soln Acetaminophen [Tylenol] 650 mg PO Q6HP PRN tablet 08/17/16 Amoxicillin/Potassium Clav 875 mg PO Q12H #10 tablet 08/17/16 [Augmentin] Budesonide [Pulmicort] 0.5 mg NEB Q12 #60 ampul.neb 08/17/16 Furosemide [Lasix] 20 mg PO QDAY PRN tablet 08/17/16 Allergies Allergy/AdvReac Type Severity Reaction Status Date / Time No Known Drug Allergies Allergy Verified 08/19/16 17:51 Review of Systems All systems ED: reviewed and negative except as stated. Past Medical History - Past Medical History [facility] Narrative: Medical History (Last Updated 08/17/16 @ 12:54 by Cheryl Mir MD ) Wheezing (Chronic) Migraine headache (Chronic) Pneumonia (Acute) Bronchitis (Chronic) Tuberculosis (Chronic) Chronic obstructive pulmonary disease, unspecified (Chronic) Body mass index (BMI) of 37.0 to 37.9 in adult (Chronic) Chronic diastolic (congestive) heart failure (Chronic) Personal history of nicotine dependence (Chronic) Past Surgical History (Last Reviewed 07/30/16 @ 08:43 by Margot Trivedi RN) History of appendectomy (Chronic) Family History (Last Reviewed 07/30/16 @ 08:43 by Margot Trivedi RN) Other No pertinent family history Medical history: Reports: COPD, other (Migraine systolic heart failure) - Social History Alcohol use: Reports: None Drug use: Reports: none Physical Exam - General Limitations: no limitations General appearance: alert, in no apparent distress - Head Head exam: atraumatic, normocephalic - Eye Eye exam: Present: normal appearance - ENT ENT exam: normal exam - Neck Neck exam: Present: normal inspection - Chest Chest inspection: Present: normal inspection - Respiratory Respiratory exam: Present: wheezes - Cardiovascular Cardiovascular exam: Present: regular rate, normal rhythm, normal heart sounds - Neurological Exam Neurological exam: Present: alert - Psychiatric Psychiatric exam: Present: normal affect, normal mood - Skin Skin exam: Present: warm, dry Course Vital Signs Temperature 98.8 F 08/19/16 10:37 Pulse Rate 64 08/19/16 10:37 Blood Pressure 174/86 08/19/16 10:37 Pulse Oximetry (%) 84 L 08/19/16 10:37 Temperature 97.6 F 08/20/16 03:55 Pulse Rate 63 08/20/16 03:55 Respiratory Rate 24 H 08/20/16 03:55 Blood Pressure 129/80 08/20/16 03:55 Pulse Oximetry (%) 91 08/20/16 03:55 Shortness of Breath/Dyspnea - [facility] Narrative Medical decision making narrative: Chest x-ray was normal. She was given a DuoNeb prednisone and Zithromax and felt better after that. However this patient continued to desat quite a bit with ambulation in the 70s. We went ahead and had her admitted to the hospital by Dr. Barron - Lab Data Lab results reviewed: Yes I reviewed the patient's lab results. Result diagrams: 08/20/16 06:33 08/19/16 14:49 Lab Results 08/19/16 08/19/16 08/19/16 Range/Units 14:49 14:49 14:49 WBC 9.8 (4.5-11.0) K/mcL RBC 4.84 (4.00-5.20) M/mcL Hgb 15.5 H (12.0-15.0) g/dL Hct 46.0 (36.0-48.0) % MCV 95.1 (80.0-100.0) fL MCH 32.0 (26.0-34.0) pg MCHC 33.7 (31.0-36.0) g/dL RDW 13.6 (11.5-14.5) % Plt Count 276 (140-440) K/mcL MPV 8.5 (7.4-10.4) fL Gran % 91.1 H (38.0-78.0) % Lymph % (Auto) 7.6 L (15.5-49.0) % [place] % (Auto) 1.1 (1.0-12.0) % Eos % (Auto) 0 (0.0-7.0) % Baso % (Auto) 0.2 (0.0-2.0) % Gran # 8.9 H (1.8-8.0) K/mcL Lymph # (Auto) 0.7 L (1.5-4.8) K/mcL [place] # (Auto) 0.1 (0.1-0.9) K/mcL Eos # (Auto) 0 (0.0-0.7) K/mcL Baso # (Auto) 0 (0.0-0.3) K/mcL VBG Lactic Acid 2.3 H (0.5-2.2) mmol/L Sodium 134 (133-145) mmol/L Potassium 4.1 (3.3-5.1) mmol/L Chloride 95 L (96-108) mmol/L Carbon Dioxide 22 (22-30) mmol/L Anion Gap 17.0 H (8-16) BUN 19 (8-23) mg/dl Creatinine 0.8 (0.6-1.1) mg/dl GFR Calculation 76 Glucose 205 H (70-105) mg/dL Calcium 9.6 (8.6-10.4) mg/dl Total Bilirubin 0.5 (0.0-1.0) mg/dL AST 19 (0-37) U/l ALT 29 (0-40) U/l Alkaline Phosphatase 78 (39-117) U/L Total Protein 7.5 (5.9-8.4) gm/dL Albumin 4.4 (3.2-5.2) gm/dL Globulin 3.1 (2.2-3.7) gm/dL Albumin/Globulin Ratio 1.4 (1.0-2.3) - Radiology Data Radiology results reviewed: Yes I reviewed the patient's radiology results. Disposition Clinical Impression: Acute exacerbation of chronic obstructive airways disease, Bronchitis Disposition: Xfer As Inpt ([facility]) Condition: Good
[2016-08-19] MEDS ORDERED: HYDROcodone/APAP 5/325MG TABLET PO ONE (11:05)
[2016-08-19] MEDS: HYDROcodone/APAP 10/325MG TABLET PO ONE ×2 (11:06→11:11)
[2016-08-19] MEDS: IPRATROPIUM/ALBUTEROL 3 ML AMPUL.NEB NEB ONE ×2 (11:11→12:52)
[2016-08-19 15:24] LABS: Basophils # (Auto) 0 K/mcL (0.0-0.3); Basophils % (Auto) 0.2 % (0.0-2.0); Eosinophils # (Auto) 0 K/mcL (0.0-0.7); Eosinophils % (Auto) 0 % (0.0-7.0); Granulocytes % (Auto) 91.1 % (38.0-78.0); Lymphocytes # (Auto) 0.7 K/mcL (1.5-4.8); Lymphocytes % (Auto) 7.6 % (15.5-49.0); Mean Cell Volume 95.1 fL (80.0-100.0); Mean Corpuscular HGB Conc 33.7 g/dL (31.0-36.0); Monocytes # (Auto) 0.1 K/mcL (0.1-0.9); Monocytes % (Auto) 1.1 % (1.0-12.0); Platelet Count 276 K/mcL (140-440); RBC 4.84 M/mcL (4.00-5.20); Red Cell Distribution Width 13.6 % (11.5-14.5)
[2016-08-19 15:44] LABS: ALT/SGPT 29 U/l (0-40); Albumin 4.4 gm/dL (3.2-5.2); Albumin/Globulin Ratio 1.4 (1.0-2.3); Alkaline Phosphatase 78 U/L (39-117); Blood Urea Nitrogen 19 mg/dl (8-23)
--- NOTE | 2016-08-19 17:10 | XRay Report ---
CLINICAL INFORMATION: Shortness of breath COMPARISON: 08/16/2016 FINDINGS: Heart size, mediastinum and pulmonary vessels are normal. The lungs are clear. No effusions. Mild old compression fractures of thoracic spine stable IMPRESSION: No acute disease - stable Interpreted and Authenticated by: Bruno Uriostegui 08/19/16
--- NOTE | 2016-08-19 17:18 | Internal Med History&Physical ---
Medical - H&P: HPI Patient information: Note initiated : 08/19/16 at 5:15 pm Service Date, if different from initiated Date: [] Patient: Keeely Brandt 66 y/o F admitted on for Shortness of breath. Chief Complaint: [] History of present illness: Ms. Brandt is a 66 year old Female with h/o moderate to severe copd, presents to the ER with 2 days of shortness of breath, cough. The patient was discharged from this facility on 08/17/2016, when she was admitted to the [facility] for copd exacerbation. Treated with duonebs, steroids and abx, she had responded to treatment, but when she got home she started feeling bad again after a day or two and staring having worsening of cough, and increased shortness of breath, therefore presented back to the ER. She is unable to bring up any sputum, but admits that she feels that she still has some sputum deep within. She has back pain with cough, and has decreased functional ability. Usually she could walk around an hour, but now feels even going to the bathroom makes her short of breath with cough. In the ER she was noted to be hypoxic, and chest x ray was negative. she was wheezing and was therefore admitted to the hospital for further management. The aptient notes she is compliant with her medications, does not smoke, no sick contacts since discharge, but admits that she has a cat with fairly long hair. The patient also reports her cough is worse when she is lying flat and better when she is upright. No other new irritant reported, no new makeup, detergent, perfume etc. All systems: reviewed and no additional remarkable complaints except as stated ( as per HPI) Medical - H&P: [facility] Medical history: Medical History (Last Updated 08/19/16 @ 12:20 by Vinnie Champion MD) Pneumonia (Acute) Body mass index (BMI) of 37.0 to 37.9 in adult (Chronic) Bronchitis (Chronic) Chronic diastolic (congestive) heart failure (Chronic) Chronic obstructive pulmonary disease, unspecified (Chronic) Migraine headache (Chronic) Personal history of nicotine dependence (Chronic) Tuberculosis (Chronic) Wheezing (Chronic) Surgical history: Past Surgical History (Last Reviewed 07/30/16 @ 08:43 by Margot Trivedi RN) History of appendectomy (Chronic) Family history: reviewed and not pertinent Social history: lives with has cat with long hair, non smoker (quit 20 ys ago) 1 glass of wine daily no THC. Medical - H&P: Meds Home Medications Medication Instructions Recorded Confirmed Type albuterol sulfate HFA 90 2 puff INHALATION Q6H PRN g 07/20/16 08/19/16 History mcg/actuation aerosol inhaler guaifenesin ER 600 mg tablet, 600 mg PO Q12H PRN 07/20/16 08/19/16 History extended release 12 hr potassium chloride ER 10 mEq 10 meq PO QDAY 07/20/16 08/19/16 History tablet,extended release budesonide 0.5 mg/2 mL suspension 0.5 mg INHALATION BID ml 07/30/16 08/19/16 History for nebulization ipratropium-albuterol 0.5 mg-3 3 ml INHALATION QID #3 ml 07/30/16 08/19/16 Rx mg(2.5 mg base)/3 mL nebulization soln Acetaminophen [Tylenol] 650 mg PO Q6HP PRN tablet 08/17/16 08/19/16 Rx Amoxicillin/Potassium Clav 875 mg PO Q12H #10 tablet 08/17/16 08/19/16 Rx [Augmentin] Budesonide [Pulmicort] 0.5 mg NEB Q12 #60 ampul.neb 08/17/16 08/19/16 Rx Furosemide [Lasix] 20 mg PO QDAY PRN tablet 08/17/16 08/19/16 Rx predniSONE [Prednisone] 10 mg PO UD #40 tablet 08/17/16 08/19/16 Rx Azithromycin [Zithromax] 250 mg PO DAILY #4 tablet 08/19/16 Rx HYDROcodone/APAP 5/325MG [[place] 1 tab PO Q4HP PRN #20 tablet 08/19/16 Rx 5/325Mg] predniSONE [Prednisone] 20 mg PO DAILY #23 tablet 08/19/16 Rx Allergies Allergy/AdvReac Type Severity Reaction Status Date / Time No Known Drug Allergies Allergy Verified 07/30/16 08:37 Medical - H&P: Exam - Constitutional Vitals: Temp Pulse Resp BP Pulse Ox 98.8 F 65 21 170/83 93 08/19/16 10:37 08/19/16 16:58 08/19/16 16:58 08/19/16 16:58 08/19/16 16:58 Exam: GENERAL: The patient is a well-developed, well-nourished in no apparent distress. Is alert and oriented x3. VITAL SIGNS: Reviewed and as noted elsewhere. HEENT: Head is normocephalic and atraumatic. Extraocular muscles are intact. Pupils are equal, round, and reactive to light. Nares appeared normal. Mouth appears any without lesions. Mucous membranes are moist. NECK: Normal to inspection, Supple, No lymphadenopathy or thyromegaly. LUNGS: Air entry equal on both sides, [place] decreased air entry, [place]lin prolonged exp , franklin rhonchi. HEART: Regular rate and rhythm normal, S1 and S2 heard, no Gallop, S3 or Rub Noted, No Gross murmur heard. ABDOMEN: Soft, nontender, and nondistended. Positive bowel sounds. No hepatosplenomegaly was noted. EXTREMITIES: No cyanosis, clubbing, rash, lesions or edema. NEUROLOGIC: Cranial nerves II through XII are grossly intact. Motor and Sensory System Grossly Intact PSYCHIATRIC: Normal affect, Normal Mood. Appropriate Behavior. SKIN: No ulceration or wounds noted, No jaundice, No rash noted. Medical - H&P: Reslt - Labs CBC & Chem 7: 08/19/16 14:49 08/19/16 14:49 Labs: Short CBC 08/19/16 Range/Units 14:49 WBC 9.8 (4.5-11.0) K/mcL Hgb 15.5 H (12.0-15.0) g/dL Hct 46.0 (36.0-48.0) % Plt Count 276 (140-440) K/mcL BMP 08/19/16 14:49 Sodium 134 Potassium 4.1 Chloride 95 L Carbon Dioxide 22 BUN 19 Creatinine 0.8 Glucose 205 H Calcium 9.6 Liver Function 08/19/16 Range/Units 14:49 Total Bilirubin 0.5 (0.0-1.0) mg/dL AST 19 (0-37) U/l ALT 29 (0-40) U/l Alkaline Phosphatase 78 (39-117) U/L Albumin 4.4 (3.2-5.2) gm/dL Medical - H&P: A/P - Narrative A/P Narrative: A/P Acute Exacerbation of COPD: Patient has PFT done in april which shows mod to severe copd, chr bronchittis type,k but also has emphysema on CT< She has neg echo and neg stress test. her x ray done today is neg. SHe has neg labs except mildly elevated lactate, which is seen if labs done during duoneb treatment, or poor sample collection. Clinically not septic. Treat with IV steroids, duonebs q4, doxycycline. She will be started on pantoprazole 40mg daily to see if this helps iwth her poor control of COPD, Advised to consider getting rid of the cat for a few days to see if the pet is the trigger for her recurrent exacerbations. send sputum cx Acute hypoxic resp failure: Oxygen supplementation. Elevated glucose: Due to steroids, Sliding scale insulin for now back pain with cough: Pain meds for now, mild old thoracic fractures noted, pain from which is likely getting exacerbated from cough DVT : hep sq Full code
[2016-08-19] MEDS ORDERED: ACETAMINOPHEN 325 MG TABLET PO PRN (17:26)
[2016-08-19] MEDS ORDERED: FUROSEMIDE 20 MG TABLET PO PRN (17:26)
[2016-08-19] MEDS ORDERED: NALOXONE HCL 0.4 MG/ML VIAL IV PRN (17:26)
[2016-08-19] MEDS ORDERED: DEXTROSE 50% 50 ML VIAL IV PRN (17:26)
[2016-08-19] MEDS ORDERED: ONDANSETRON 4 MG/2 ML VIAL IV PRN (17:26)
[2016-08-19] MEDS ORDERED: guaiFENesin/DEXTROMETHORPHAN ORAL SOL PO PRN (17:26)
[2016-08-19] MEDS: methylPREDNISolone SOD SUCC 125 MG/2 ML VIAL IV SCH ×2 (19:25→22:57)
[2016-08-19] MEDS: IPRATROPIUM/ALBUTEROL 3 ML AMPUL.NEB NEB SCH ×2 (21:26→23:01)
[2016-08-19] MEDS: HEPARIN 5,000 UNIT/ML VIAL SQ SCH (21:27)
[2016-08-19] MEDS: INSULIN LISPRO 1 UNIT/0.01 ML UNIT SQ SCH (21:27)
[2016-08-19] MEDS: DOXYCYCLINE HYCLATE 100 MG TABLET.ORL PO SCH (21:31)
[2016-08-19] MEDS: BUDESONIDE 0.5 MG/2 ML AMPUL.NEB NEB SCH (21:33)
[2016-08-19] MEDS: 0.9 % SODIUM CHLORIDE 10 ML SYRINGE IV SCH (23:00)
[2016-08-20] MEDS: IPRATROPIUM/ALBUTEROL 3 ML AMPUL.NEB NEB SCH ×6 (04:00→23:02)
[2016-08-20] MEDS: methylPREDNISolone SOD SUCC 125 MG/2 ML VIAL IV SCH ×3 (05:44→21:26)
[2016-08-20] MEDS: 0.9 % SODIUM CHLORIDE 10 ML SYRINGE IV SCH ×3 (05:45→21:28)
[2016-08-20] MEDS: BUDESONIDE 0.5 MG/2 ML AMPUL.NEB NEB SCH ×2 (07:00→19:51)
[2016-08-20 07:23] LABS: Basophils # (Auto) 0 K/mcL (0.0-0.3); Basophils % (Auto) 0 % (0.0-2.0); Eosinophils # (Auto) 0 K/mcL (0.0-0.7); Eosinophils % (Auto) 0.2 % (0.0-7.0); Granulocytes % (Auto) 88.7 % (38.0-78.0); Lymphocytes # (Auto) 0.8 K/mcL (1.5-4.8); Lymphocytes % (Auto) 9.2 % (15.5-49.0); Mean Cell Volume 94.8 fL (80.0-100.0); Mean Corpuscular HGB Conc 33.7 g/dL (31.0-36.0); Mean Corpuscular Hemoglobin 31.9 pg (26.0-34.0); Monocytes # (Auto) 0.2 K/mcL (0.1-0.9); Monocytes % (Auto) 1.9 % (1.0-12.0); Platelet Count 275 K/mcL (140-440); RBC 4.62 M/mcL (4.00-5.20); Red Cell Distribution Width 13.5 % (11.5-14.5)
[2016-08-20 07:56] LABS: ALT/SGPT 27 U/l (0-40); Albumin 4.1 gm/dL (3.2-5.2); Albumin/Globulin Ratio 1.4 (1.0-2.3); Alkaline Phosphatase 70 U/L (39-117); Bilirubin,Direct < 0.2 mg/dL (0.0-0.3); Blood Urea Nitrogen 14 mg/dl (8-23); Gamma Glutamyl Transpeptidase 54 U/L (5-36); Magnesium 2.1 mg/dL (1.6-2.5); Uric Acid 5.3 mg/dL (2.5-8.0)
[2016-08-20] MEDS: HEPARIN 5,000 UNIT/ML VIAL SQ SCH ×2 (08:00→21:35)
[2016-08-20] MEDS: PANTOPRAZOLE 40 MG TABLET PO SCH (08:01)
[2016-08-20] MEDS: POTASSIUM CHLORIDE 10 MEQ TABLET PO SCH (08:01)
[2016-08-20] MEDS: INSULIN LISPRO 1 UNIT/0.01 ML UNIT SQ SCH ×4 (08:02→21:20)
[2016-08-20] MEDS: oxyCODONE HCL 5 MG TABLET PO PRN ×2 (08:05→18:46)
[2016-08-20] MEDS: DOXYCYCLINE HYCLATE 100 MG TABLET.ORL PO SCH ×2 (10:48→21:19)
--- NOTE | 2016-08-20 12:48 | Internal Med Progress Note ---
Medical - PN: Subj Patient information: Note initiated : 08/20/16 at 12:46 pm Service Date, if different from initiated Date: [] Patient: Keeley Brandt 66 y/o F admitted on 08/19/16 for Shortness of Breath /Acute Exacerbation of COPD. Chief Complaint: [] Interval history: Ms. Brandt is a 66 year old Female with h/o moderate to severe copd, presents to the ER with 2 days of shortness of breath, cough. The patient was discharged from this facility on 08/17/2016, when she was admitted to the [facility] for copd exacerbation. Treated with duonebs, steroids and abx, she had responded to treatment, but when she got home she started feeling bad again after a day or two and staring having worsening of cough, and increased shortness of breath, therefore presented back to the ER. She is unable to bring up any sputum, but admits that she feels that she still has some sputum deep within. She has back pain with cough, and has decreased functional ability. Usually she could walk around an hour, but now feels even going to the bathroom makes her short of breath with cough. In the ER she was noted to be hypoxic, and chest x ray was negative. she was wheezing and was therefore admitted to the hospital for further management. The aptient notes she is compliant with her medications, does not smoke, no sick contacts since discharge, but admits that she has a cat with fairly long hair. The patient also reports her cough is worse when she is lying flat and better when she is upright. No other new irritant reported, no new makeup, detergent, perfume etc. 07/21: Patient seen examined, doing better this AM, but still sob, and needs oxygen, she is sob with minimal activity, she has better sputum production now and this has been sent for microbiology. She subjectively feels better than yesterday Pertinent ROS: Denies headache, dizziness Denies chest pain, palpitations cough and SOB present Denies abdominal pain, nausea or vomiting. - Constitutional Vitals: Vital Signs Temp Pulse Resp BP Pulse Ox 96.4 F L 69 16 165/84 92 08/20/16 11:58 08/20/16 11:58 08/20/16 11:58 08/20/16 11:58 08/20/16 11:59 Period Temp Pulse Resp BP Sys/Barber Pulse Ox Last 24 Hr 96.4 F-98.5 F 62-84 12-24 122-165/80-87 89-93 Intake and Output 08/19/16 08/20/16 08/20/16 21:59 05:59 13:59 Intake Total 1160 / 1160 800 / 800 960 / 960 Output Total 2150 / 2150 1600 / 1600 1600 / 1600 Balance -990 / -990 -800 / -800 -640 / -640 Weight 229 lb Intake & Output: Intake & Output 08/19/16 08/20/16 08/20/16 21:59 05:59 13:59 Intake Total 1160 / 1160 800 / 800 960 / 960 Output Total 2150 / 2150 1600 / 1600 1600 / 1600 Balance -990 / -990 -800 / -800 -640 / -640 Weight 229 lb Intake: Oral 1160 / 1160 800 / 800 960 / 960 Output: Void Amount 2150 / 2150 1600 / 1600 1600 / 1600 Other: Meal Dinner Percent of Meal Consumed 40% Feeding Ability Independent # Voids 1 1 1 Exam: Constitutional; Afebrile, cooperative, alert, not in distress. Eyes- No icterus, , No periorbital swelling Ears- Ext ear normal, hearing normal to conversation. Neck- Midline trachea, supple Respiratory system: Air Entry equal on both sides, franklin wheezing and rhonchi, prlonged exp phase. CVS- Rate rhythm regular, S1,S2 heard, no gallop, no rub. 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 Medical - PN: Obj Da - Labs CBC & Chem 7: 08/20/16 06:33 08/20/16 06:33 Labs: Abnormal Lab Results 08/20/16 08/20/16 06:33 06:33 Gran % 88.7 H Lymph % (Auto) 9.2 L Lymph # (Auto) 0.8 L Carbon Dioxide 21 L Glucose 139 H GGT 54 H Meds: Medications Acetaminophen (Tylenol) 650 mg PO Q6HP PRN PRN Reason: PAIN/FEVER > 101 Albuterol/Ipratropium (Duoneb) 3 ml NEB Q4HRT [facility] Last Admin: 08/20/16 11:21 Dose: 3 ml Budesonide (Pulmicort) 0.5 mg NEB Q12 [facility] Last Admin: 08/20/16 07:00 Dose: 0.5 mg Dextrose (Dextrose 50%) 0 ml IV UD PRN PRN Reason: Hypoglycemia Diagnostic Test (Pha) (Accu-Chek) 1 each FS ACHS [facility] Last Admin: 08/20/16 11:38 Dose: 1 each Doxycycline Hyclate (Doxycycline Hyclate) 100 mg PO BID [facility] Stop: 08/26/16 09:01 Last Admin: 08/20/16 10:48 Dose: 100 mg Furosemide (Lasix) 20 mg PO DAILYP PRN PRN Reason: Edema Guaifenesin (Robitussin Dm) 5 ml PO Q4HP PRN PRN Reason: Cough Heparin Sodium (Porcine) (Heparin) 5,000 unit SQ Q12 [facility] Last Admin: 08/20/16 08:00 Dose: 5,000 unit Insulin Human Lispro (Humalog) 0 unit SQ [facility] PRN Reason: Protocol Last Admin: 08/20/16 11:38 Dose: Not Given Methylprednisolone Sodium Succinate (Solu-Medrol) 62.5 mg IV Q8 [facility] Last Admin: 08/20/16 05:44 Dose: 62.5 mg Naloxone HCl (Narcan) 0.1 mg IV Q2MIN PRN PRN Reason: Opiate Reversal Ondansetron HCl (Zofran) 4 mg IV Q6HP PRN PRN Reason: Nausea And Vomiting Oxycodone HCl (Roxicodone) 5 mg PO Q4HP PRN PRN Reason: Pain Last Admin: 08/20/16 08:05 Dose: 5 mg Pantoprazole Sodium (Protonix) 40 mg PO QAMAC [facility] Last Admin: 08/20/16 08:01 Dose: 40 mg Potassium Chloride (Kdur) 10 meq PO QAMCC [facility] Last Admin: 08/20/16 08:01 Dose: 10 meq Sodium Chloride (Saline Flush) 10 ml IV Q8 [facility] Last Admin: 08/20/16 05:45 Dose: 10 ml Medical - PN: A/P - Time Spent With Patient Total time spent is greater than 50% in coordination of care (as documented) at patient's floor/unit and/or counseling patient: - Narrative A/P Narrative: A/P Acute Exacerbation of COPD: (moderate to severe copd as per PFT) continue to treat with doxy, duonebs and IV steroids, Still wheezing now, and still needs oxygen, reassess in AM Acute hypoxic resp failure: Oxygen supplementation. Elevated glucose: Due to steroids, Sliding scale insulin for now back pain with cough: Pain meds for now, mild old thoracic fractures noted, pain from which is likely getting exacerbated from cough, prn hydrocodone helping DVT : hep sq DNR Medical - PN: Qual - VTE Deep Vein Thrombosis/Pulmonary Embolism Present on Admission: No
[2016-08-21] MEDS: IPRATROPIUM/ALBUTEROL 3 ML AMPUL.NEB NEB SCH ×3 (03:19→11:17)
[2016-08-21] MEDS: 0.9 % SODIUM CHLORIDE 10 ML SYRINGE IV SCH (06:38)
[2016-08-21] MEDS: BUDESONIDE 0.5 MG/2 ML AMPUL.NEB NEB SCH (07:20)
[2016-08-21] MEDS: PANTOPRAZOLE 40 MG TABLET PO SCH (07:33)
[2016-08-21] MEDS: INSULIN LISPRO 1 UNIT/0.01 ML UNIT SQ SCH ×2 (07:36→11:27)
[2016-08-21 07:55] LABS: Basophils # (Auto) 0 K/mcL (0.0-0.3); Basophils % (Auto) 0.1 % (0.0-2.0); Eosinophils # (Auto) 0 K/mcL (0.0-0.7); Eosinophils % (Auto) 0.4 % (0.0-7.0); Granulocytes % (Auto) 88.5 % (38.0-78.0); Lymphocytes # (Auto) 0.8 K/mcL (1.5-4.8); Lymphocytes % (Auto) 7.8 % (15.5-49.0); Mean Corpuscular HGB Conc 33.6 g/dL (31.0-36.0); Mean Corpuscular Hemoglobin 31.9 pg (26.0-34.0); Monocytes # (Auto) 0.4 K/mcL (0.1-0.9); Monocytes % (Auto) 3.2 % (1.0-12.0); Platelet Count 127 K/mcL (140-440); RBC 4.69 M/mcL (4.00-5.20); Red Cell Distribution Width 13.7 % (11.5-14.5)
[2016-08-21] MEDS: DOXYCYCLINE HYCLATE 100 MG TABLET.ORL PO SCH (08:06)
[2016-08-21] MEDS: POTASSIUM CHLORIDE 10 MEQ TABLET PO SCH (08:07)
[2016-08-21] MEDS: HEPARIN 5,000 UNIT/ML VIAL SQ SCH (08:08)
[2016-08-21 09:11] LABS: ALT/SGPT 28 U/l (0-40); Albumin 4.4 gm/dL (3.2-5.2); Albumin/Globulin Ratio 1.7 (1.0-2.3); Alkaline Phosphatase 71 U/L (39-117); Bilirubin,Direct < 0.2 mg/dL (0.0-0.3); Blood Urea Nitrogen 18 mg/dl (8-23); Gamma Glutamyl Transpeptidase 51 U/L (5-36); Magnesium 2.1 mg/dL (1.6-2.5); Uric Acid 5.5 mg/dL (2.5-8.0)
[2016-08-21] MEDS: methylPREDNISolone SOD SUCC 125 MG/2 ML VIAL IV SCH (09:18)
[2016-08-21] MEDS ORDERED: predniSONE 20 MG TABLET PO ONE (11:26)
--- NOTE | 2016-08-21 11:34 | Discharge Summary ---
Medical - DS: Prov Patient information: Note initiated : 08/21/16 at 11:29 am Service Date, if different from initiated Date: [] Patient: Keeley Brandt 66 y/o F admitted on 08/19/16 for Shortness of Breath /Acute Exacerbation of COPD. Chief Complaint: [] Date of admission: 08/19/16 17:19 Discharge date: 08/21/16 Primary care physician: Juni Avitia Admitting clinician: Juvenal Barron Discharging clinician: Juvenal Barron Medical - DS: Meds - Discharge Medications Prescriptions: Doxycycline Hyclate 100 mg PO BID #10 Pantoprazole [Protonix] 40 mg PO QAMAC #30 tablet predniSONE [Prednisone] 10 mg PO ONCE #38 tablet Active and Home Medications: Home Medications albuterol sulfate HFA 90 mcg/actuation aerosol inhaler 2 puff INHALATION Q6H PRN g 07/20/16 [History Confirmed 08/19/16 Last Taken 08/19/16] potassium chloride ER 10 mEq tablet,extended release 10 meq PO QDAY 07/20/16 [ History Confirmed 08/19/16 Last Taken 08/13/16 08:00] budesonide 0.5 mg/2 mL suspension for nebulization 0.5 mg INHALATION BID ml 02/03 [History Confirmed 08/19/16 Last Taken 08/19/16] ipratropium-albuterol 0.5 mg-3 mg(2.5 mg base)/3 mL nebulization soln 3 ml INHALATION QID #3 ml 07/30/16 [Rx Confirmed 08/19/16 Last Taken 08/19/16] Acetaminophen [Tylenol] 650 mg PO Q6HP PRN tablet 08/17/16 [Rx Confirmed Last Taken Unknown] Amoxicillin/Potassium Clav [Augmentin] 875 mg PO Q12H #10 tablet 08/17/16 [Rx Confirmed 08/19/16 Last Taken 08/19/16] Budesonide [Pulmicort] 0.5 mg NEB Q12 #60 ampul.neb 08/17/16 [Rx Confirmed 08/19 Last Taken 08/19/16] Furosemide [Lasix] 20 mg PO QDAY PRN tablet 08/17/16 [Rx Confirmed 08/19/16 Last Taken Unknown] guaiFENesin [Mucus Relief] 400 mg PO TIDP PRN 08/19/16 [History Confirmed Last Taken 08/19/16] predniSONE [Prednisone] 70 mg PO DAILY 08/19/16 [History Confirmed 08/19/16 Last Taken 08/19/16] Medical - DS: Hosp Hospital course: Mr. Brandt is a 66 year old F wit h/o moderate to severe COPD who presented to the ER with complaints of increased shortness of breath and wheezing which started back 2 days prior The patient was recently discharged from this facility for same issue, at the time of discharge she was doing well, however once she returned home she started having shortness of breath again and therefore came back, In the ER she had neg CXR and was wheezing, was admitted to hospital again for copd exacerbation. COPD Exacerbation: patient has moderate to severe copd exacerbation, treated with steroids, abx and duonebs in the hospital, her condition improved, she was still needing 2L oxygen and had some wheezing going on, but she was able to ambulate in the room without getting sob. The patient still had Cats in her house, which would have likely worsened her respiratory condition, she was educated about same and she has temporarily moved her cats to another place to see if that would help her breath better. She also reported cough which gets worse while sleeping or lying down, She was started on PPI therapy for same, hoping that it would prevent her recurrence. The patients microbiology is negative so far The patent is being prescribed 2L oxygen, the need for Oxygen will need to be reassessed in the clinic in a month or so. her Oxygen sat on room air is 90% Oxygen sat on ambulation is 84 on room air and 88 percent on 2L oxygen. The patient expressed a very strong desire to go home today as her was alone and she was feeling low and depressed here (no Suicidal ideations), she promised to return to the ER if any worsening sob or cough or fever The rest of the hospital stay was uneventful, no changes in her home list done. Discharge diagnosis: COPD exacerbation. - Time Spent with Patient Total time spent providing and/or coordinating discharge services: Greater than 30 minutes Medical - DS: Exam - Constitutional Vitals: Vital Signs Temp Pulse Pulse Pulse Resp BP Pulse Ox 08/21/16 11:22 96.4 F L 20 138/84 91 08/21/16 08:02 92 08/21/16 08:00 63 16 92 08/21/16 07:57 68 16 08/21/16 07:25 96.2 F L 66 20 175/96 92 08/21/16 07:21 92 08/21/16 04:10 84 L 08/21/16 03:47 98.0 F 65 20 111/74 90 08/20/16 23:07 63 14 08/20/16 22:56 98.0 F 64 20 107/73 93 08/20/16 22:55 93 08/20/16 20:03 71 14 08/20/16 19:52 92 08/20/16 19:51 92 08/20/16 19:23 97.7 F 69 20 137/80 90 08/20/16 18:40 69 90 08/20/16 16:00 96.5 F L 69 14 138/70 94 08/20/16 15:50 72 16 08/20/16 15:47 93 08/20/16 11:59 92 08/20/16 11:58 96.4 F L 69 16 165/84 92 08/20/16 11:35 91 08/20/16 11:34 65 12 91 08/20/16 11:32 68 16 Intake and Output 08/20/16 08/21/16 08/21/16 21:59 05:59 13:59 Intake Total 1495 / 1495 970 / 970 Output Total 1999 675 / 675 Balance -505 / -505 295 / 295 Intake: Oral 1020 / 1020 970 / 970 GI Tube Flush 475 / 475 Output: Void Amount 1999 675 / 675 Other: Meal Dinner Percent of Meal Consumed 100% Feeding Ability Independent Weight 229 lb 8 oz Additional comments: Constitutional; Afebrile, cooperative, alert, not in distress. Eyes- No icterus, , No periorbital swelling Ears- Ext ear normal, hearing normal to conversation. Neck- Midline trachea, supple Respiratory system: Air Entry equal on both sides,franklin wheezing present, improved much since admission. CVS- Rate rhythm regular, S1,S2 heard, no gallop, no rub. 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 Medical - DS: Data Labs on day of discharge: Labs from last 24 hours 08/21/16 08/21/16 08/21/16 08:20 05:35 05:35 WBC 10.8 RBC 4.69 Hgb 15.0 Hct 44.6 MCV 95.0 MCH 31.9 MCHC 33.6 RDW 13.7 Plt Count 127 L MPV 9.9 Gran % 88.5 H Lymph % (Auto) 7.8 L [place] % (Auto) 3.2 Eos % (Auto) 0.4 Baso % (Auto) 0.1 Gran # 9.6 H Lymph # (Auto) 0.8 L [place] # (Auto) 0.4 Eos # (Auto) 0 Baso # (Auto) 0 Sodium 133 TNP Potassium 4.0 TNP Chloride 96 TNP Carbon Dioxide 25 TNP Anion Gap 12.0 TNP BUN 18 TNP Creatinine 0.8 TNP GFR Calculation 76 TNP BUN/Creatinine Ratio TNP Glucose 122 H TNP Uric Acid 5.5 TNP Calcium 9.6 TNP Phosphorus 3.0 TNP Magnesium 2.1 TNP Total Bilirubin 0.4 TNP Direct Bilirubin < 0.2 TNP GGT 51 H TNP AST 16 TNP ALT 28 TNP Alkaline Phosphatase 71 TNP Lactate Dehydrogenase 235 TNP Total Protein 7.0 TNP Albumin 4.4 TNP Globulin 2.6 TNP Albumin/Globulin Ratio 1.7 TNP Triglycerides 97 TNP Medical - DS: A/P - Patient/Caregiver Discharge Instructions Activity: increase activity as tolerated Diet: Regular Diet Additional Instructions: Take Duoneb neublizer every 4 hours for 1 week and then cut back to every 6 hours. 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 Go back to ER if any new concern. Worsening condition. Prescriptions: Doxycycline Hyclate 100 mg PO BID #10 Pantoprazole [Protonix] 40 mg PO QAMAC #30 tablet predniSONE [Prednisone] 10 mg PO ONCE #38 tablet - Follow up Plan Follow up with: Juni Avitia MD [Primary Care Provider] - (Call on Saturday for a hospital follow up. ro 5-10 days.) Esteban Lopez MD [Physician] - Disposition: Home, Self-Care Prognosis: Fair Rehab Potential: Fair I certify that the patient requires SNF services: No Overall status at discharge: patient is progressing back to baseline Medical - DS: Qual - VTE Deep Vein Thrombosis/Pulmonary Embolism Present on Admission: No
== END 2016-08-21 13:25 | disposition home or self-care (01) ==
LOC: MEDSUR 10:36 → ED 10:36 → MEDSUR 17:20
PROVIDERS: ADMIT Internal Medicine; ATTEND Internal Medicine